=== PATIENT | female | born 1975 | race Caucasian/White ===

== ENCOUNTER 2017-04-23 20:33 | Emergency (ER) | payer OTHER ==
[2017-04-23] MEDS ORDERED: NS 1,000 ML IV ONE (20:43)
[2017-04-23] MEDS ORDERED: DIAZEPAM 10 MG/2 ML SYR IVP ONE (20:44)
[2017-04-23] MEDS ORDERED: DIAZEPAM 10 MG TAB PO ONE (20:55)
[2017-04-23 20:58] VITALS: RESP 16
[2017-04-23] MEDS ORDERED: DIAZEPAM 5 MG TAB ONE (21:01)
--- NOTE | 2017-04-23 21:02 | EDPHY ---
H & P Time Seen by Provider: 04/23/17 20:42 HPI/ROS: HPI Shaking, anxiety, vomiting and diarrhea earlier today. 41-year-old female by private vehicle with her mother. This patient is from [place]. The patient has had a problem with an anxiety disorder which causes her to have tremors in feel very anxious at random times. She was seen for this in our emergency department last May of 2016. She was treated with Ativan which worked for her well but she did not like how it made her feel tired. She has had episodes of this condition since that time. She has seen a primary care physician in her hometown of [place] and was prescribed Wellbutrin. She has been taking Wellbutrin for about a week now. She reports that she thinks this helps. She reports that she onset about 1:00 p.m. and then developed nausea with 1 episode of vomiting and watery diarrhea. She reports that 1:45 p.m. she had 1 of these anxiety episodes and this is continued since that time. She denies any abdominal pain. She has had no further nausea, vomiting or diarrhea. She denies any other complaints. ROS: Constitutional: No fever, no chills. As above. Eyes: No discharge. No changes in vision. ENT: No sore throat. No nasal congestion or rhinorrhea. Respiratory: No cough. No shortness of breath. Cardiac: No chest pain, no palpitations. Gastrointestinal: No abdominal pain, as above. Genitourinary: No hematuria. No dysuria or increased frequency with urination. Musculoskeletal: No back pain. No neck pain. No myalgias or arthralgias. Skin: No rashes. Neurological: No headache. No focal weakness or altered sensation. As above. Past medical history: As above. Social history: Visiting from [place]. Here with her mother. Physical Exam: General Appearance: Alert, very anxious, intermittently shaking tremor throughout her body. This patient is responding to questions appropriately and in full sentences. This patient appears well-hydrated and well-nourished. Eyes: Pupils equal and round no pallor or injection. No lid edema, erythema or injection. ENT, Mouth: Mucous membranes are moist. The pharyngeal tissues are unremarkable. No edema or swelling. No asymmetry suggestive of abscess. No erythema or exudates no tongue lacerations or abrasions.. Respiratory: There are no retractions, lungs are clear to auscultation with good air movement bilaterally. Cardiovascular: Regular rate and rhythm. No murmur. Gastrointestinal: Abdomen is soft and nontender, no masses, bowel sounds normal. No focal tenderness at McBurney's point. No Stone sign. Neurological: Motor sensory function is grossly intact. Cranial nerves are normal. Gait is normal. Skin: Warm and dry, no rashes. Musculoskeletal: Neck is supple and nontender. Extremities are symmetrical. All joints range without pain or impingement. Psychiatric: No agitation. No depression. Database: EKG: Imaging: Procedures: Emergency department course: After my evaluation I discussed treatment options with her. I will give her a single dose of Valium orally at 10 mg. Her presentation is consistent with an anxiety syndrome. 9:30 p.m., the patient complained of some mild nausea. She was given 4 mg of ODT Zofran. 10:00 p.m., patient re-evaluated. She is feeling much better at this time. She feels relaxed and comfortable. She feels comfortable going home with her mother. Feel she is safe for discharge. Follow-up and return to emergency department precautions reviewed with her and her mother. All of their questions were answered. She was discharged in good condition. Differential Diagnosis: The differential diagnosis on this patient includes but is not limited to anxiety disorder, pseudoseizures. Seizure disorder, CVA, TIA, toxic metabolic problem unlikely. This represents a partial list of diagnoses considered. These considerations are based on history, physical exam, past history, reassessment and diagnostic testing. Smoking Status: Never smoked Constitutional: Initial Vital Signs Temperature (C) 37.0 C 04/23/17 20:45 Heart Rate 92 04/23/17 20:45 Respiratory Rate 16 04/23/17 20:45 Blood Pressure 136/80 H 04/23/17 20:45 O2 Sat (%) 95 04/23/17 20:45 O2 Delivery Mode Room Air Allergies/Adverse Reactions: codeine Allergy (Verified 06/11/16 21:13) Home Medications: Medication Instructions Recorded Wellbutrin Xl 04/23/17 Medical Decision Making - Data Points Medications Given: Discontinued Medications Diazepam (Valium Injection) 5 mg IVP EDNOW ONE Stop: 04/23/17 20:45 Last Admin: 04/23/17 21:02 Dose: Not Given Diazepam (Valium) 10 mg PO EDNOW ONE Stop: 04/23/17 20:56 Last Admin: 04/23/17 21:01 Dose: 10 mg Sodium Chloride (Ns) 1,000 mls @ 0 mls/hr IV ONCE ONE PRN Reason: Wide Open Stop: 04/23/17 20:44 Last Admin: 04/23/17 21:02 Dose: Not Given Ondansetron HCl (Zofran Odt) 4 mg PO EDNOW ONE Stop: 04/23/17 21:43 Last Admin: 04/23/17 21:44 Dose: 4 mg Departure - Departure Disposition: Home, Routine, Self-Care Clinical Impression: Anxiety reaction Condition: Good Instructions: Anxiety (ED) Additional Instructions: Read and follow provided instructions. Follow-up with your primary care physician or psychiatrist when you return home to [place] for further evaluation and management of your condition. Continue your Wellbutrin as prescribed. Return to the emergency department for worsening symptoms or other serious concerns. Referrals: NONE *PRIMARY CARE P,. [Primary Care Provider] - As per Instructions
[2017-04-23 21:37] VITALS: BP 108/73; PULSE 82; TEMP 97.5; O2SAT 93
[2017-04-23] MEDS ORDERED: ONDANSETRON DISINTEGRATING 4 MG TAB PO ONE (21:42)
== END 2017-04-23 22:07 | disposition home or self-care (01) ==
LOC: CED 20:33
DX: F41.1 Generalized anxiety disorder (principal)